=== PATIENT | female | born 1945 | race Caucasian/White ===

== ENCOUNTER → 2017-10-11 | Outpatient (CLI) | payer MEDICARE ==
[~2017-10-11] MED LIST: ASCO60LO9 PO; BILB80CA2 PO; BIMA2.5D5 OP; CHOL10005 PO; FLAX1CAP6 PO; LUTE1CAP4 PO; OMEG1CAP93 PO; TAFL1DRO OP
[2017-10-11 16:01] LABS: PLATELET COUNT, AUTOMATED 252 K/uL (150-450)
== END ==
LOC: LAB 15:32
PROVIDERS: ATTEND Family Medicine
DX: I10 Essential (primary) hypertension (principal)
CPT/HCPCS: 36415; 82040; 82247; 82310; 82374; 82435; 82565; 82947; 84075; 84132; 84155; 84295; 84450; 84460; 84520; 85025